=== PATIENT | female | born 1960 | race Caucasian/White ===

== ENCOUNTER → 2017-03-23 | Outpatient (CLI) | payer BC ==
[~2017-03-23] MED LIST: CENESTIN0.9 MG PO; NORCO 325 MG-51 TAB PO
== END ==
LOC: COL.VAS 14:32
DX: M79.662 Pain in left lower leg (principal)

== ENCOUNTER 2017-04-22 16:22 | Inpatient (IN) | payer BC ==
[~2017-04-22] VITALS: Ht 154.9 cm; Wt 116.4 kg
[2017-04-22 17:05] LABS: BASO # 0.1 (0.0-0.2); BASO % 0.6 % (0.0-2.0); EOS # 0.3 (0.0-0.7); EOS % 3.2 % (0-4.0); GRAN # 8.1 (1.4-6.5); GRAN % 87.2 % (42.2-75.2); HEMATOCRIT 42.5 % (37.0-47.0); LYMPH # 0.3 (1.2-3.4); LYMPH % 2.9 % (20.0-51.0); MEAN CELL VOLUME 93 fl (80.0-100.0); MEAN CORPUSCULAR HEMOGLOBIN 31 pg (27.0-31.0); MEAN CORPUSCULAR HGB CONC 33 g/dl (33.0-37.0); MEAN PLATELET VOLUME 9.6 fl (7.4-10.4); MONO # 0.5 (0.1-0.6); MONO % 5.3 % (1.7-9.3); PLATELET COUNT 177 K/mm3 (130-400); RED BLOOD COUNT 4.57 M/mm3 (4.10-5.30); WHITE BLOOD COUNT 9.3 K/mm3 (4.8-10.8)
[2017-04-22 17:19] LABS: ADJUSTED CALCIUM 9.4 mg/dL (8.4-10.2); ALBUMIN 3.7 gm/dL (3.5-5.0); BILIRUBIN,TOTAL 4.3 mg/dL (0.0-1.0); C-REACTIVE PROTEIN 8.6 mg/dL (0.0-0.9); CALCIUM 9.2 mg/dL (8.4-10.2); CREATININE, serum 0.83 mg/dL (0.52-1.25); POTASSIUM 4.3 mmol/L (3.4-5.0); TOTAL PROTEIN 6.9 gm/dL (6.4-8.2)
[2017-04-22] MEDS ORDERED: PRIL40 PO (20:28)
[2017-04-22] MEDS ORDERED: ZOFRAN 4MG T4 MG/TAB PO (20:29)
[2017-04-22] MEDS ORDERED: COZAAR 50MG50 MG/TAB PO (20:29)
[2017-04-22] MEDS ORDERED: MACROBID 1100 MG/CAP PO (20:30)
[2017-04-22] MEDS ORDERED: ALLEGRA 60MG TA60 MG PO (20:31)
[2017-04-22] MEDS ORDERED: PREMARIN0.45 MG PO (20:32)
[2017-04-22 21:00] LABS: INR 1.1 (0.8-3.0); PROTHROMBIN TIME 11.7 SECONDS (9.7-12.8)
[2017-04-22 22:04] VITALS: BP 108/52; PULSE 91; TEMP 99.3
[2017-04-23 00:46] LABS: COLLECTION METHOD CLEAN CATCH
[2017-04-23 00:52] LABS: MUCOUS Present /lpf; PH 5 (5-8); SQUAMOUS EPITHELIAL 0-2 /hpf; URINE APPEARANCE Clear; URINE BACTERIA Rare /hpf; URINE BILIRUBIN Positive (NEGATIVE); URINE BLOOD Negative (NEGATIVE); URINE COLOR Amber; URINE GLUCOSE Negative (NEGATIVE); URINE KETONE Trace (NEGATIVE); URINE LEUKOCYTE ESTERASE Negative (NEGATIVE); URINE PROTEIN(semi-quant) 1+ (NEGATIVE); URINE RBC 0-2 /hpf; URINE UROBILINOGEN >=4.0 mg/dL (NEGATIVE)
[2017-04-23 02:00] VITALS: BP 99/42; PULSE 87; TEMP 99.4
[2017-04-23 05:26] VITALS: BP 123/46; PULSE 86; TEMP 98.5
[2017-04-23 08:15] LABS: HEMATOCRIT 38.1 % (37.0-47.0); HEMOGLOBIN 12.6 g/dl (12.5-16.0); MEAN CELL VOLUME 93 fl (80.0-100.0); MEAN CORPUSCULAR HEMOGLOBIN 31 pg (27.0-31.0); MEAN CORPUSCULAR HGB CONC 33 g/dl (33.0-37.0); MEAN PLATELET VOLUME 9.6 fl (7.4-10.4); PLATELET COUNT 182 K/mm3 (130-400); WHITE BLOOD COUNT 10.1 K/mm3 (4.8-10.8)
[2017-04-23 08:19] LABS: ADD PATHOLOGY DIFF REVIEW NO
[2017-04-23 08:24] LABS: ADJUSTED CALCIUM 8.9 mg/dL (8.4-10.2); ALBUMIN 3.1 gm/dL (3.5-5.0); BILIRUBIN,TOTAL 4.9 mg/dL (0.0-1.0); CALCIUM 8.2 mg/dL (8.4-10.2); CREATININE, serum 0.87 mg/dL (0.52-1.25); TOTAL PROTEIN 5.7 gm/dL (6.4-8.2)
[2017-04-23 09:08] LABS: BAND 39 % (0-10); EOSINOPHIL 3 % (0-4); LYMPHOCYTE 6 % (20.0-51.0); NEUTROPHILS 49 % (42.0-75.2); TOTAL CELLS COUNTED 100
[2017-04-23 09:09] LABS: PLATELET ESTIMATE NORMAL (NORMAL)
[2017-04-23 09:27] VITALS: BP 110/62; PULSE 87; TEMP 98.2
[2017-04-23 15:55] VITALS: BP 106/44; PULSE 79; TEMP 98.3
[2017-04-23 16:32] VITALS: BP 115/55; PULSE 81; TEMP 98.8
[2017-04-23 22:42] VITALS: BP 122/55; PULSE 88; TEMP 98.5
[2017-04-24 04:36] VITALS: BP 122/52; PULSE 85; TEMP 99
[2017-04-24 06:46] LABS: MEAN CELL VOLUME 93 fl (80.0-100.0); MEAN CORPUSCULAR HGB CONC 33 g/dl (33.0-37.0); MEAN PLATELET VOLUME 9.7 fl (7.4-10.4); PLATELET COUNT 173 K/mm3 (130-400); RED BLOOD COUNT 3.72 M/mm3 (4.10-5.30); WHITE BLOOD COUNT 9.4 K/mm3 (4.8-10.8)
[2017-04-24 06:47] LABS: HEMATOCRIT 34.6 % (37.0-47.0); HEMOGLOBIN 11.4 g/dl (12.5-16.0); MEAN CORPUSCULAR HEMOGLOBIN 31 pg (27.0-31.0)
[2017-04-24 07:05] LABS: CREATININE, serum 0.88 mg/dL (0.52-1.25); POTASSIUM 3.6 mmol/L (3.4-5.0)
[2017-04-24 08:02] LABS: BILIRUBIN,TOTAL 4.1 mg/dL (0.0-1.0)
[2017-04-24 08:06] LABS: BAND 7 % (0-10); EOSINOPHIL 1 % (0-4); LYMPHOCYTE 17 % (20.0-51.0); NEUTROPHILS 73 % (42.0-75.2); PLATELET ESTIMATE NORMAL (NORMAL); TOTAL CELLS COUNTED 100
[2017-04-24 08:10] LABS: HYPOCHROMIA 1+
[2017-04-24 08:11] LABS: ADD PATHOLOGY DIFF REVIEW YES
[2017-04-24 09:36] VITALS: BP 127/54; PULSE 78; TEMP 98.2
[2017-04-24 12:58] VITALS: BP 125/53; PULSE 81; TEMP 99.3
[2017-04-24] MEDS ORDERED: AMOXICILLIN 8751 TAB PO (13:56)
[2017-04-24] MEDS ORDERED: NORCO 325 MG-51 TAB PO (14:01)
[2017-04-25 08:00] LABS: PATHOLOGY DIFF REVIEW OK
== END 2017-04-24 14:30 | disposition home or self-care (01) | DRG 445 ==
LOC: COL.ER 16:22 → JCC 17:59
PROVIDERS: Family Medicine; Internal Medicine; Surgery
DX: K80.00 Calculus of gallbladder with acute cholecystitis without obstruction (principal); E87.1 Hypo-osmolality and hyponatremia; N39.0 Urinary tract infection, site not specified; I10 Essential (primary) hypertension; K21.9 Gastro-esophageal reflux disease without esophagitis
CPT/HCPCS: 99223-AI; 99239; A9585; C9113; J1170; J2405; J2543; J7030; J7050; Q9967

== ENCOUNTER 2017-07-07 08:08 | Day surgery (SDC) | payer BC ==
[~2017-07-07] VITALS: Ht 154.9 cm; Wt 112.5 kg
[2017-07-07] VITALS (8 sets, daily range): BP systolic 103–127; BP diastolic 43–67; PULSE 64–74; TEMP 97.2–97.5
[~2017-07-07 08:08] MED LIST changes: +ALLEGRA 60MG TA60 MG PO; +AMOXICILLIN 8751 TAB PO; +COZAAR 50MG50 MG/TAB PO; +MACROBID 1100 MG/CAP PO; +PREMARIN0.45 MG PO; +PRIL40 PO; +ZOFRAN 4MG T4 MG/TAB PO
[2017-07-07] MEDS ORDERED: NORCO 325 MG-51 TAB PO (12:57)
== END 2017-07-07 13:35 | disposition home or self-care (01) ==
LOC: SDCO 08:08
DX: K80.10 Calculus of gallbladder with chronic cholecystitis without obstruction (principal); K76.0 Fatty (change of) liver, not elsewhere classified; K21.9 Gastro-esophageal reflux disease without esophagitis; I10 Essential (primary) hypertension; Z90.710 Acquired absence of both cervix and uterus; Z88.2 Allergy status to sulfonamides; Z88.1 Allergy status to other antibiotic agents; Z88.3 Allergy status to other anti-infective agents; Z88.8 Allergy status to other drugs, medicaments and biological substances; E66.01 Morbid (severe) obesity due to excess calories; Z68.42 Body mass index [BMI] 45.0-49.9, adult
CPT/HCPCS: J1170; J2704; J3010; J7120

== ENCOUNTER → 2017-09-07 | Outpatient (CLI) | payer BC | LOC: MC.RAD 14:14 | DX: Z12.31 Encounter for screening mammogram for malignant neoplasm of breast (principal) ==

== ENCOUNTER → 2018-10-02 | Outpatient (CLI) | payer BC | LOC: MC.RAD 15:00 | DX: Z12.31 Encounter for screening mammogram for malignant neoplasm of breast (principal) ==

== ENCOUNTER → 2019-10-04 | Outpatient (CLI) | payer BC | LOC: MC.RAD 16:47 | DX: Z12.31 Encounter for screening mammogram for malignant neoplasm of breast (principal) ==

== ENCOUNTER → 2020-10-06 | Outpatient (CLI) | payer BC | LOC: MC.RAD 07:45 | DX: Z12.31 Encounter for screening mammogram for malignant neoplasm of breast (principal) ==

== ENCOUNTER 2021-09-05 14:10 | Emergency (ER) | payer BC ==
[~2021-09-05] VITALS: Ht 154.9 cm; Wt 113.6 kg
[2021-09-05 14:17] VITALS: BP 165/75; PULSE 85; TEMP 98.2
[2021-09-05] MEDS ORDERED: DIFLUCAN 100MG100 MG PO (14:36)
[2021-09-05] MEDS ORDERED: CEPHALEXIN500 M1 PO (14:36)
== END 2021-09-05 15:00 | disposition home or self-care (01) ==
LOC: COL.ER 14:10
DX: M79.671 Pain in right foot (principal); Z88.1 Allergy status to other antibiotic agents; Z88.2 Allergy status to sulfonamides

== ENCOUNTER → 2021-10-30 | Outpatient (CLI) | payer BC ==
[~2021-10-30] MED LIST changes: +CEPHALEXIN500 M1 PO; +DIFLUCAN 100MG100 MG PO
== END ==
LOC: MC.RAD 09:15
DX: Z12.31 Encounter for screening mammogram for malignant neoplasm of breast (principal)

== ENCOUNTER → 2022-11-04 | Outpatient (CLI) | payer BC | LOC: MC.RAD 13:44 | DX: Z12.31 Encounter for screening mammogram for malignant neoplasm of breast (principal) ==

== ENCOUNTER → 2023-11-07 | Outpatient (CLI) | payer BC | LOC: COL.LAB 14:15 | DX: Z12.31 Encounter for screening mammogram for malignant neoplasm of breast (principal) ==

== ENCOUNTER → 2024-01-03 | Outpatient (CLI) | payer BC | LOC: COL.RAD 11:45 | DX: M51.16 Intervertebral disc disorders with radiculopathy, lumbar region (principal) ==

== ENCOUNTER → 2024-03-05 | Outpatient (CLI) | payer BC ==
[~2024-03-05] VITALS: Ht 154.9 cm; Wt 118.1 kg
[~2024-03-05] MED LIST changes: +DIFLUCAN150 MG PO; +DOXYCYCLINE HY100 MG PO; +HCTZ 25MG TAB25 MG PO; +PROBIOTIC BLEN1 EACH PO; +Regadenoson 0.08 MG/ML 5 ML SYRINGE IV SCH; +ZYRTEC 10MG10 MG PO
[2024-03-05 10:12] VITALS: BP 152/77; PULSE 70; TEMP 98.3
[2024-03-05 11:14] VITALS: BP 125/78; PULSE 67
[2024-03-05 11:18] VITALS: BP 133/75; PULSE 77
[2024-03-05 11:19] VITALS: BP 138/78; PULSE 91
[2024-03-05 11:20] VITALS: BP 163/81; PULSE 89
== END ==
LOC: COL.VAS 08:45
DX: I34.0 Nonrheumatic mitral (valve) insufficiency (principal)
CPT/HCPCS: A9500-JZ; J2785